=== PATIENT | male | born 1950 | race Caucasian/White ===

== ENCOUNTER 2017-01-01 10:43 | Observation (INO) | payer OTHER ==
--- NOTE | 2017-01-01 11:58 | CPEKG ---
Heart Rate: 69 RR Interval: 870 P-R Interval: 148 QRSD Interval: 80 QT Interval: 372 QTC Interval: 399 P [place]: 50 QRS [place]: 72 T Wave [place]: 38 EKG Severity - NORMAL ECG - EKG Impression: SINUS RHYTHM Electronically Signed By: Conrad Huynh 01-Jan-2017 14:57:55
--- NOTE | 2017-01-01 14:15 | EDPHY ---
H & P Stated Complaint: SOB for several mos;dostor told him "nothing wrong" - Personal History Current Tetanus Diphtheria and Acellular Pertussis (TDAP): Yes - Medical/Surgical History Other PMH: Non Hodgkins lymphoma - Social History Smoking Status: Former smoker Time Seen by Provider: 01/01/17 14:15 Constitutional: Initial Vital Signs Temperature (C) 36.8 C 01/01/17 10:45 Heart Rate 90 01/01/17 10:45 Respiratory Rate 16 01/01/17 10:45 Blood Pressure 146/88 H 01/01/17 10:45 O2 Sat (%) 95 01/01/17 10:45 O2 Delivery Mode Room Air Allergies/Adverse Reactions: lorazepam [From Ativan] Allergy (Severe, Verified 01/01/17 17:04) HALLUCINATIONS alcohol Allergy (Verified 01/01/17 11:11) IV contrast Allergy (Severe, Uncoded 01/01/17 11:15) Anaphylaxis ATIVAN Allergy (Intermediate, Uncoded 01/01/17 11:16) hallucinations Home Medications: Medication Instructions Recorded Allopurinol [Allopurinol 300 MG 150 mg PO Q12H 01/01/17 (RX)] Pepcid Complete 1 cap PO BID 01/01/17 Aspirin 81 mg PO DAILY #30 tablet 01/02/17 Metoprolol Tartrate [Lopressor 25 12.5 mg PO BID #30 tab 01/02/17 mg (*)] Medical Decision Making ED Course/Re-evaluation: CHIEF COMPLAINT: Exertional dyspnea HISTORY OF PRESENT ILLNESS: The patient is a 66 y/o male arriving with his complaining of exertional dyspnea for the last few weeks. He says his chiropractor referred him to a rn triage so he came to the ED. Sometimes when he takes a deep breath during exertion he gets a few beats of a rapid heart beat. He denies any shortness of breath, chest pain, chest tightness, or palpitations while at rest. He denies other complaints. He states his urologist advised him to stop his Flomax for a week, which has not changed his symptoms. No prior cardiac workups. REVIEW OF SYSTEMS: A 10 point review of systems was performed and is negative with the exception of the elements mentioned in the history of present illness. PHYSICAL EXAM: HR, BP, O2 Sat, RR. Temp noted General Appearance: Alert, well hydrated, appropriate, and non-toxic appearing. Head: Atraumatic without scalp tenderness or obvious injury Eyes: Pupils equal, round, reactive to light and accommodation, EOMI, no trauma , no injection. Nose: Atraumatic, no rhinorrhea, clear. Throat: Mucus membranes moist. Neck: Supple, nontender, no lymphadenopathy. Respiratory: No retractions, no distress, no wheezes, and no accessory muscle use. Lungs have mild rales bilaterally Cardiovascular: Regular rate and rhythm, no murmurs, rubs, or gallops. Good capillary refill all extremities. Gastrointestinal: Abdomen is soft, nontender, non-distended, no masses, no rebound, no guarding, no peritoneal signs. Musculoskeletal: Normal active ROM of all extremities, atraumatic. Neurological: Alert, appropriate, and interactive. The patient has normal DTRs and non-focal cranial nerves, motor, sensory, and cerebellar exam. Skin: No rashes, good turgor, no nodules on palpation. Past medical history: Foot issues, non-Hodgkin's lymphoma treated with chemotherapy, gout Past surgical history: "dozen" foot surgeries Family history: noncontributory Social history: Former smoker. at bedside. PCP: Nathan Diamond, Urologist: Dr. Wright DIFFERENTIAL DIAGNOSIS: The differential diagnosis for the patient's shortness of breath and hypoxemia included but was not limited to pneumonia, myocardial infarction, acute mountain sickness, high altitude pulmonary edema, congestive heart failure, and pulmonary embolus. MEDICAL DECISION MAKING: This is a 66 y/o male with a history of lymphoma who presents with a few-week history of exertional dyspnea without chest pain. Mild rales on exam, otherwise unremarkable. Plan for standard dyspnea work up including IV, labs, EKG. Patient signed out to Dr. Aparicio at shift change pending lab and EKG results. If normal, patient will be discharged with referral to cardiology for follow up. (Conrad Huynh) 4:30 p.m. we discussed the patient's lab results. He continues to have dyspnea and chest tightness with any exertion even walking. We discussed options. We agreed to admit to the hospital service and likely perform stress testing tomorrow. He is asymptomatic at rest. 5:00 p.m. I discussed the case with Dr. Bolaños who will admit to the hospital service. (Aris Aparicio) Differential Diagnosis: Partial list of the Differential diagnosis considered include but were not limited to; acute coronary disease, arrhythmia, CHF and although unlikely based on the history and physical exam, I also considered PE, anxiety, infection. (Aris Aparicio) - Data Points Laboratory Results: Laboratory Results 01/01/17 15:30 01/01/17 15:30 Medications Given: Discontinued Medications Allopurinol (Allopurinol) 150 mg PO Q12H IQRA Stop: 06/30/17 17:44 Last Admin: 01/01/17 18:43 Dose: Not Given Allopurinol (Allopurinol) 150 mg PO Q12H IQRA Stop: 06/30/17 17:44 Last Admin: 01/02/17 08:57 Dose: Not Given Aspirin (Aspirin) 325 mg PO EDNOW ONE Stop: 01/01/17 17:02 Last Admin: 01/01/17 17:10 Dose: 325 mg Enoxaparin Sodium (Lovenox) 40 mg SC DAILY IQRA Stop: 07/01/17 08:59 Last Admin: 01/02/17 08:58 Dose: Not Given Miscellaneous Medication (Pepcid Complete) 1 cap PO BID IQRA Stop: 06/30/17 20:59 Last Admin: 01/01/17 21:30 Dose: 1 cap Miscellaneous Medication (Pepcid Complete) 1 cap PO BID IQRA Stop: 06/30/17 20:59 Last Admin: 01/02/17 08:48 Dose: 1 cap Departure - Departure Disposition: [facility] Inpatient Acute Clinical Impression: Exertional dyspnea Condition: Good Report Scribed for: Conrad Huynh Report Scribed by: Noy Braun Date of Report: 01/01/17 Time of Report: 14:49
[2017-01-01 15:38] LABS: % IMMATURE GRANULYOCYTES 0.2 % (0.0-1.1); ABSOLUTE IMMATURE GRANULOCYTES 0.02 10^3/uL (0.00-0.10); ADD DIFF? NO; ADD MORPH? NO; ADD SCAN? NO; ATYPICAL LYMPHOCYTE FLAG 30 (0-99); FRAGMENT RBC FLAG 0 (0-99); HEMATOCRIT 46.4 % (40.0-51.0); HEMOGLOBIN 16.6 g/dL (13.7-17.5); LEFT SHIFT FLG 0 (0-99); LIPEMIA HEMOLYSIS FLAG 90 (0-99); MEAN CELL HEMOGLOBIN 32.9 pg (27.9-34.1); MEAN CELL HEMOGLOBIN CONCENTR. 35.8 g/dL (32.4-36.7); MEAN CELL VOLUME 91.9 fL (81.5-99.8); MEAN PLATELET VOLUME 9.5 fL (8.7-11.7); PLATELET CLUMPS FLAG 0 (0-99); PLATELET COUNT 163 10^3/uL (150-400); RED BLOOD CELL COUNT 5.05 10^6/uL (4.40-6.38)
[2017-01-01 15:50] LABS: INR 1.08 (0.83-1.16); PROTIME(PATIENT) 13.9 SEC (12.0-15.0)
[2017-01-01 15:51] LABS: APTT 29.8 SEC (23.0-38.0)
[2017-01-01 15:56] LABS: ANION GAP 11 mEq/L (8-16); CALCIUM 9.5 mg/dL (8.5-10.4); CARBON DIOXIDE 23 mEq/l (22-31); CHLORIDE 108 mEq/L (97-110); CREATININE 1.2 mg/dL (0.7-1.3); GLOMERULAR FILTRATION RATE > 60; GLUCOSE 84 mg/dL (70-100); POTASSIUM 4.2 mEq/L (3.5-5.2); SODIUM 142 mEq/L (134-144)
[2017-01-01 16:04] LABS: TROPONIN I < 0.012 ng/mL (0-0.034)
[2017-01-01] MEDS ORDERED: ASPIRIN 325 MG TAB PO ONE (17:01)
[2017-01-01] MEDS ORDERED: ONDANSETRON 4 MG/2 ML VIAL IVP PRN (17:42)
[2017-01-01] MEDS ORDERED: ONDANSETRON DISINTEGRATING 4 MG TAB PO PRN (17:42)
[2017-01-01] MEDS ORDERED: ACETAMINOPHEN 325 MG TAB PO PRN (17:42)
[2017-01-01] MEDS ORDERED: ALLOPURINOL 300 MG TAB PO SCH (17:45)
--- NOTE | 2017-01-01 19:32 | PDGENHP ---
History and Physical - Chief Complaint acute dyspnea - History of Present Illness primary care provider: Dr. Nguyen Primary urologist: Dr. Wright HPI: 66-year-old male presents with acute dyspnea characterized as shortness of breath exacerbated by any level of physical exertion with associated chest tightness and onset of symptoms approximately 9 months ago but duration has been progressively worsening thereafter and rendered the patient unable to exert himself at all on the day of this presentation. He also reports that deep inspiration seems to exacerbate what he describes as a rapid heart rate and then a pause. He denies any lightheadedness, denies any nausea vomiting diarrhea fever or chills. Did discontinue his Flomax approximately 1 month ago and his symptoms have persisted. He has not undergone any cardiopulmonary evaluation as yet. History Information - Allergies/Home Medication List Allergies/Adverse Reactions: lorazepam [From Ativan] Allergy (Severe, Verified 01/01/17 17:04) HALLUCINATIONS alcohol Allergy (Verified 01/01/17 11:11) IV contrast Allergy (Severe, Uncoded 01/01/17 11:15) Anaphylaxis ATIVAN Allergy (Intermediate, Uncoded 01/01/17 11:16) hallucinations Home Medications: Allopurinol [Allopurinol 300 MG (RX)] 150 mg PO Q12H 01/01/17 [Last Taken 150MG] Pepcid Complete 1 cap PO BID 01/01/17 [Last Taken 01/01/17 1 CAP] I have personally reviewed and updated: family history, medical history, social history, surgical history - Past Medical History Additional medical history: Previously arachnoiditis with lumbar spine pain. Foot surgery. Carotid stenosis. Non-Hodgkin's lymphoma with chemotherapy. Gout - Surgical History Additional surgical history: patient reports "36 surgeries". right-sided CEA. Colon resection. Foot surgery for tophi removed - Family History Additional family history: father with coronary artery disease at age 68, mother with valvular heart surgery in her 70s - Social History Smoking Status: Former smoker Alcohol Use: Sober Drug Use: None Additional social history: patient reports that he gained approximately 30-40 lb this past winter secondary to immobility, he has yet to increase his level of physical activity secondary to his aforementioned symptoms Review of Systems ROS: 10pt was reviewed & negative except for what was stated in HPI & below Cardiac: Reports: palpitations, other ( chest tightness) Respiratory: Reports: shortness of breath Physical Exam Temp Pulse Resp BP Pulse Ox 36.7 C 78 16 121/85 H 94 01/01/17 18:16 01/01/17 18:16 01/01/17 18:16 01/01/17 18:16 01/01/17 18:16 Constitutional: no apparent distress, appears nourished, not in pain Eyes: PERRL, anicteric sclera, EOMI Ears, Nose, Mouth, Throat: moist mucous membranes, hearing normal, ears appear normal, no oral mucosal ulcers Cardiovascular: regular rate and rhythym, no murmur, rub, or gallop, edema ( trace bilateral lower extremity) Respiratory: no respiratory distress, no rales or rhonchi, clear to auscultation Gastrointestinal: normoactive bowel sounds, soft, non-tender abdomen, no palpable masses Skin: warm, normal color, no rashes or abrasions, no fluctuance, no induration, No mottled Musculoskeletal: other ( tenderness to palpation over his pectoralis muscles bilaterally, full range of motion bilateral shoulders without eliciting any pain ) Neurologic: AAOx3, sensation intact bilaterally, No weakness Psychiatric: not encephalopathic, thought process linear, anxious, agitated, other ( patient has an unusual affect and is very confrontational from the beginning of our encounter, he appears to become more comfortable as the counter continues but he becomes quickly tangential, though redirectible) Lab Data & Imaging Review 01/01/17 15:30 01/01/17 15:30 WBC 9.92 10^3/uL (3.80-9.50) H 01/01/17 15:30 RBC 5.05 10^6/uL (4.40-6.38) 01/01/17 15:30 Hgb 16.6 g/dL (13.7-17.5) 01/01/17 15:30 Hct 46.4 % (40.0-51.0) 01/01/17 15:30 MCV 91.9 fL (81.5-99.8) 01/01/17 15:30 MCH 32.9 pg (27.9-34.1) 01/01/17 15:30 MCHC 35.8 g/dL (32.4-36.7) 01/01/17 15:30 RDW 13.0 % (11.5-15.2) 01/01/17 15:30 Plt Count 163 10^3/uL (150-400) 01/01/17 15:30 MPV 9.5 fL (8.7-11.7) 01/01/17 15:30 Neut % (Auto) 65.2 % (39.3-74.2) 01/01/17 15:30 Lymph % (Auto) 19.6 % (15.0-45.0) 01/01/17 15:30 [place] % (Auto) 11.8 % (4.5-13.0) 01/01/17 15:30 Eos % (Auto) 2.5 % (0.6-7.6) 01/01/17 15:30 Baso % (Auto) 0.7 % (0.3-1.7) 01/01/17 15:30 Nucleat RBC Rel Count 0.0 % (0.0-0.2) 01/01/17 15:30 Absolute Neuts (auto) 6.47 10^3/uL (1.70-6.50) 01/01/17 15:30 Absolute Lymphs (auto) 1.94 10^3/uL (1.00-3.00) 01/01/17 15:30 Absolute Monos (auto) 1.17 10^3/uL (0.30-0.80) H 01/01/17 15:30 Absolute Eos (auto) 0.25 10^3/uL (0.03-0.40) 01/01/17 15:30 Absolute Basos (auto) 0.07 10^3/uL (0.02-0.10) 01/01/17 15:30 Absolute Nucleated RBC 0.00 10^3/uL (0-0.01) 01/01/17 15:30 Immature Gran % 0.2 % (0.0-1.1) 01/01/17 15:30 Immature Gran # 0.02 10^3/uL (0.00-0.10) 01/01/17 15:30 PT 13.9 SEC (12.0-15.0) 01/01/17 15:30 INR 1.08 (0.83-1.16) 01/01/17 15:30 APTT 29.8 SEC (23.0-38.0) 01/01/17 15:30 D-Dimer 0.43 ug/mLFEU (0.00-0.50) 01/01/17 15:30 Sodium 142 mEq/L (134-144) 01/01/17 15:30 Potassium 4.2 mEq/L (3.5-5.2) 01/01/17 15:30 Chloride 108 mEq/L (97-110) 01/01/17 15:30 Carbon Dioxide 23 mEq/l (22-31) 01/01/17 15:30 Anion Gap 11 mEq/L (8-16) 01/01/17 15:30 BUN 17 mg/dL (7-23) 01/01/17 15:30 Creatinine 1.2 mg/dL (0.7-1.3) 01/01/17 15:30 Estimated GFR > 60 01/01/17 15:30 Glucose 84 mg/dL (70-100) 01/01/17 15:30 Calcium 9.5 mg/dL (8.5-10.4) 01/01/17 15:30 Troponin I < 0.012 ng/mL (0-0.034) 01/01/17 15:30 NT-Pro-B Natriuret Pep 14 pg/mL (0-125) 01/01/17 15:30 Visualized and Interpreted Chest x-ray results: Yes Chest X-Ray results: no infiltrate Visualized and Interpreted EKG results: Yes EKG Interpretation: Positive for: other ( sinus arrhythmia without any ST changes) Assessment & Plan Assessment: 66-year-old male presenting with exertional dyspnea and chest tightness the setting of previous non-Hodgkin's lymphoma and chemotherapy treatment Plan: 1. Dyspnea and chest tightness. Acute, new problem this provider, further workup indicated. Patient's symptoms are concerning for either exertional angina versus potential cardiomyopathy symptoms in the setting of previous chemotherapy and non-Hodgkin's lymphoma as well as recent substantial weight gain. -get exercise stress test -get echocardiogram -get TSH level -repeat chemistries in a.m. -continue monitor on telemetry to rule out palpitations as the patient describes symptomatic palpitations with deep inspiration 2. Chronic back pain. Reviewed outside records including 09/20/2011 myelogram report demonstrating possible arachnoiditis in the lumbar spine, patient reports that his pain has been well controlled on intermittent nonsteroidal anti -inflammatory medications with the patient has not been taking them on a scheduled or potentially dangerous routine Diet. Regular, NPO in a.m. Prophylaxis. Moderate risk patient, Lovenox 40 Code. Full Disposition. Anticipated discharge 01/02/2017, pending further workup as outlined above. I have discussed patient's presentation with Dr. Arsi Aparicio in the emergency department, he and I both agree the patient does warrant urgent evaluation and cardiopulmonary risk stratification.
[2017-01-01] MEDS ORDERED: PEPCID COMPLETE PO SCH ×2 (21:00)
[2017-01-01] MEDS: [UNRECOGNIZED DRUG - MIXTURE] PO SCH (23:22)
[2017-01-01] MEDS: ALLOPURINOL 300 MG TAB PO SCH (23:23)
[2017-01-02 05:27] LABS: % IMMATURE GRANULYOCYTES 0.4 % (0.0-1.1); ABSOLUTE IMMATURE GRANULOCYTES 0.03 10^3/uL (0.00-0.10); ADD DIFF? NO; ADD MORPH? NO; ADD SCAN? NO; ATYPICAL LYMPHOCYTE FLAG 0 (0-99); FRAGMENT RBC FLAG 0 (0-99); HEMATOCRIT 45.9 % (40.0-51.0); HEMOGLOBIN 16.3 g/dL (13.7-17.5); LEFT SHIFT FLG 0 (0-99); LIPEMIA HEMOLYSIS FLAG 90 (0-99); MEAN CELL HEMOGLOBIN 32.7 pg (27.9-34.1); MEAN CELL HEMOGLOBIN CONCENTR. 35.5 g/dL (32.4-36.7); MEAN CELL VOLUME 92.2 fL (81.5-99.8); MEAN PLATELET VOLUME 9.5 fL (8.7-11.7); PLATELET CLUMPS FLAG 0 (0-99); PLATELET COUNT 173 10^3/uL (150-400); RED BLOOD CELL COUNT 4.98 10^6/uL (4.40-6.38); RED CELL DISTRIBUTION WIDTH 12.8 % (11.5-15.2)
[2017-01-02 05:37] LABS: ANION GAP 12 mEq/L (8-16); CALCIUM 9.7 mg/dL (8.5-10.4); CARBON DIOXIDE 21 mEq/l (22-31); CHLORIDE 110 mEq/L (97-110); CREATININE 1.2 mg/dL (0.7-1.3); GLOMERULAR FILTRATION RATE > 60; GLUCOSE 97 mg/dL (70-100); POTASSIUM 4.4 mEq/L (3.5-5.2); SODIUM 143 mEq/L (134-144)
[2017-01-02 05:46] LABS: TROPONIN I < 0.012 ng/mL (0-0.034)
[2017-01-02] MEDS: [UNRECOGNIZED DRUG - MIXTURE] PO SCH (08:48)
[2017-01-02] MEDS: ALLOPURINOL 300 MG TAB PO SCH (08:57)
[2017-01-02] MEDS ORDERED: ENOXAPARIN 40 MG/0.4 ML SYR SC SCH (09:00)
[2017-01-02 12:52] VITALS: BP 127/80; PULSE 90; RESP 18; TEMP 98.1; O2SAT 94
--- NOTE | 2017-01-02 12:55 | ECHO ---
[id number] + + [address] : : [place] [address] : : [phone] + + Adult Echocardiographic Report + ---------+ :Name: SHELDON ABDUL WStudy Date: 01/02/2017 10:10 AM : : Hospital Admission Number: [id number] Leah bellamy: 219: :: 1950 Gender: Male Height: 65 i n : :Age: 66 yrs Race: WH Weight: 180 lb : :Reason For Study: Eval LV Fx : : BSA: 1.9 met ers2 : :History: Hypoxia : + ---------+ MMode/2D Measurements \T\ Calculations IVSd: 0.81 cm LVIDd: 4.3 cm FS: 35.0 % Ao root diam: 3.1 cm LVPWd: 1.0 cm LVIDs: 2.8 cm EDV(Teich): 82.0 ml ACS: 1.8 cm ESV(Teich): 29.0 ml LA dimension: 3.0 cm EF(Teich): 64.6 % Normal Measurement Values: + + :LVIDd (3.5-5.7cm) IVSd (0.6-1.1cm) LVPWd (0.6-1.1cm) Aortic Root (2.0-3.7cm)Left Atrium (1.5-4.0cm): :LV Vol(d) (76-115ml) LV Vol(s) (29-48ml) Ejec Fraction (50-65%)PV Nikolas (0.6- 1.2m/s) TV Nikolas (0.4-1.0m/s) : :MV E Nikolas (0.8-1.0m/s)MV A Nikolas (0.3-1.0m/s)LVOT Nikolas (0.7-1.2m/s) Asc Ao Nikolas ( 0.9-1.8m/s) : + + Doppler Measurements \T\ Calculations MV E max nikolas: Ao V2 max: LV V1 max: PA V2 max: 56.8 cm/sec 143.9 cm/sec 57.3 cm/sec 82.8 cm/sec MV A max nikolas: Ao max P.3 mmHg LV V1 max PG: PA max P.6 cm/sec 1.3 mmHg 2.7 mmHg MV E/A: 0.79 Left Ventricle The left ventricle is normal in size. There is mild to moderate concentric left ventricular hypertrophy. The left ventricular ejection fraction is normal. Ejection Fraction = 65%. The left ventricular wall motion is normal. Right Ventricle The right ventricle is normal in size and function. Atria The left atrial size is normal. Right atrial size is normal. Mitral Valve The mitral valve is normal. There is no mitral valve stenosis. There is no mitral regurgitation noted. Tricuspid Valve Normal tricuspid valve. There is trace tricuspid regurgitation. Aortic Valve There is mild focal calcification of the right coronary cusp of the aortic valve. There is no aortic stenosis. There is no aortic insufficiency. Pulmonic Valve The pulmonic valve is normal in structure and function. There is no pulmonic valvular regurgitation. Great Vessels The aortic root is normal size. Pericardium/Pleural There is no pericardial effusion. Conclusion A complete two-dimensional transthoracic echocardiogram was performed (2D, M-mode, Doppler and color flow Doppler). There is mild to moderate concentric left ventricular hypertrophy. The left ventricular ejection fraction is normal. Ejection Fraction = 65%. The left ventricular wall motion is normal. The right ventricle is normal in size and function. The left atrial size is normal. The mitral valve is normal. There is trace tricuspid regurgitation. There is mild focal calcification of the right coronary cusp of the aortic valve. There is no pericardial effusion. Final Reading Physician: Dr Savanah Goins electronically signed on 01/02/2017 12:54 PM Ordering Physician: Paul Bolaños Performed By: Aramis Flores, JAYCS
--- NOTE | 2017-01-02 13:46 | CPR ---
[f rep st] NONINVASIVE CARDIAC PROCEDURE REPORT INDICATION FOR PROCEDURE: Shortness of breath, occasional chest pressure. PRE: After obtaining informed consent, patient was placed onto electrocardiogram showing sinus rhyt hm, normal axis, with no significant ST or T-wave abnormalities suggesting ischemia. Patient denies any chest pain, shortness of breath, or symptoms suggesting ischemia. Initial blood pressure was 1 20/80, saturation 96% on room air. STRESS: Patient was placed on exercise treadmill. Following standard Payam protocol, the following findings: 1. Patient exercised for 7 minutes and 15 seconds. 2. Patient obtained a heart rate of 153 beats per minute, which was 98% MPHR. 3. Patient had 8.4 METS. 4. Patient reporting no chest pains or symptoms suggesting of ischemia. 5. Patient was noted to have [address] depression horizontal and inferior lateral leads at peak ex ercise. 6. BP variations: At rest 120/80, peak 166/80. 7. Patient was noted to have occasional PAC during stress but no other malignant arrhythmias noted. 8. SpO2 remained greater than 90% throughout testing. 9. Test was stopped due to maximum effort. 10. Ramos treadmill score of 2 placing patient at intermediate risk. RECOVERY: Patient recovered for 5 minutes reporting no symptoms suggesting ischemia, vital signs re mained stable. No arrhythmias except occasional premature atrial contraction noted. EKG: ST depre ssion normalized within 2 minutes. At the time of ending of test, patient was pain free, and vital signs are stable. IMPRESSION: 66-year-old male, admitted to the hospital with complaint of dyspnea on exertion, occas ional episode of mild chest pressure with exertion, noted to have [address] depression in inferior lateral leads at peak exercise, no symptoms of chest pain or ischemia at peak exercise. Noted to correa ve occasional PAC. I have discussed this with Dr. Ruben Carnes. The patient has been noted to have 2 negative tropon ins since hospitalization. He is scheduled to undergo echocardiogram. If echocardiogram shows no w all motion abnormalities, then would recommend patient to undergo exercise treadmill MPI study for f urther evaluation of cardiac ischemia. This can be done as an outpatient again as long as the echo shows no wall motion abnormality. This was also discussed with the hospitalist, patient's admitting doctor, Dr. Gutierrez. /[id number]/MODL
--- NOTE | 2017-01-03 04:28 | GDS ---
[f rep st] DISCHARGE SUMMARY DISCHARGE DIAGNOSES: 1. Dyspnea on exertion improved. 2. Chronic back pain. 3. Brief episode of supraventricular tachycardia. CONSULTANTS: None. HISTORY: For details please see the history and physical dated January 01. In brief, the patient is a 66-year-old male with a history of non-Hodgkin's lymphoma and chronic back pain who presents to the emergency department with dyspnea on exertion and associated chest tightness onset of symptoms 9 mo nths ago. He was admitted to the hospital for further evaluation. HOSPITAL COURSE: The patient was admitted to the progressive care unit. His initial EKG appeared n onischemic. He had negative troponins x2. An echocardiogram showed a normal ejection fraction of 6 5% with no wall motion abnormalities. Mild focal calcification of the right coronary cusp of the ao rtic valve is noted. Exercise treadmill stress test was performed on the day of discharge. He did have an occasional episode of mild chest pressure with exertion and [address] depression in his inf erior lateral leads at peak exercise, but no symptoms of chest pain or evidence of ischemia at peak exercise. He is also noted to have a brief run of SVT. Given his ST depression during his treadmil l stress test it is recommended he undergo outpatient nuclear medicine stress test. I discussed thi s with Cardiology and they are comfortable with him having this done in the outpatient setting. His appointment is scheduled for this Sunday. The patient will also follow up with Dr. Savanah Goins. Misty lazo prior to discharge the patient pointed out to me some discoloration on his right 4th and left 3rd toenails which could simply be bruising though also must consider if these are Janeway lesions in t he setting of endocarditis. He has had no fevers or chills. As a precautionary measure, blood cult ures are drawn prior to discharge. If these were to pipe turner positive he will need to undergo TYSON t o further rule out agitation. As above there is no obvious vegetation noted in his transthoracic ec hocardiogram. The patient is discharged on a low-dose beta terra to prevent recurrent SVT as well as baby aspirin. DISPOSITION: The patient is discharged home in stable condition. FOLLOWUP: Patient will follow up at [facility] on Sunday, January 05 at 2 p.m. for a nucle ar medicine stress test. He is advised to not take any caffeine or chocolate [address] He also has a followup with [facility] January 10 at 11:30 a.m. He will follow up wit h his primary care as needed. DISCHARGE MEDICATIONS: 1. Metoprolol 12.5 mg p.o. b.i.d. #30 no refills. 2. Aspirin 81 mg p.o. daily #30, no refills. He will continue all other outpatient medications as prescribed. /[id number]/MODL
== END 2017-01-02 15:16 | disposition home or self-care (01) ==
LOC: F2W 17:29
PROVIDERS: ADMIT Student in an Organized Health Care Education/Training Program; ATTEND Student in an Organized Health Care Education/Training Program
DX: R06.09 Other forms of dyspnea (principal); M54.9 Dorsalgia, unspecified; I47.1 Supraventricular tachycardia; Z85.72 Personal history of non-Hodgkin lymphomas; Z87.891 Personal history of nicotine dependence
CPT/HCPCS: 71020; 93005; 93017; 93306; G0378; J1650

== ENCOUNTER 2018-10-31 15:50 | Emergency (ER) | payer OTHER ==
[2018-10-31 16:11] VITALS: BP 170/112
== END 2018-10-31 16:19 | disposition left against medical advice (07) ==
DX: Z53.21 Procedure and treatment not carried out due to patient leaving prior to being seen by health care provider (principal)